=== PATIENT | male | born 1945 | race Caucasian/White ===

== ENCOUNTER → 2017-06-26 | Outpatient (CLI) | payer OTHER ==
--- NOTE | 2017-06-26 16:23 | PCVCIMAG ---
APPROVED REPORT Exam: Stress Echocardiogram Indication: Dyspnea , Chest pain Patient Location: Echo lab Stress Nurse: Sandi Cabrera RN Status: routine HR: 66 bpm Rhythm: NSR w/ lateral T wave inversion Medical History Medical History: COPD Cardiac Risk Factors: HTN Procedure The patient underwent an Exercise Stress Test using the Wayne Protocol. Blood pressure, heart rate, and EKG were monitored. An Echocardiogram was performed by public health sanitarian technician in four stages in quad fashion. At peak stress, four selected images were obtained and placed side by side with resting images for comparison. Stress Test Details Stress Test: Exercise stress testing was performed using a Wayne protocol. HR Resting HR: 66 bpmMax Heart Rate (APMHR): 146 bpm Max HR Achieved: 127 bpmTarget HR (85% APMHR): 124 bpm % of APMHR: 86 Recovery HR: 77 bpm HR response to stress: Normal HR response to stress BP Resting BP: 142/78 mmHg Max BP: 220/110 mmHg Recovery BP: 176/90 mmHg ECG Resting ECG: Sinus Rhythm with T wave inversion laterally Stress ECG: Sinus Rhythm Arrhythmia: Short run of SVT at rest, pre-exercise, that resolved quickly Recovery ECG: Sinus Rhythm Recovery ST Deviation: 0 mm Recovery Arrhythmia: None Clinical Reason for Termination: Dyspnea, Maximal effort Stress Symptoms: Dyspnea Exercise duration: 6 min 26 sec Highest Stage Achieved: Stage 3: 3.4 mph at 14% grade. Exercise capacity: 8.4 METs Overall Exercise Capacity for Age: Average Angina Score: None Stress ECG Conclusion Clinical: Non-ischemic ECG: Non-ischemic Pre-Stress Echo The resting Echocardiogram showed normal left ventricular contractility with an estimated Ejection Fraction of about 50-55%. Normal wall motion in all segments on baseline images. Post-Stress Echo The stress Echocardiogram showed abnormal left ventricular contractility with an estimated Ejection Fraction of about 60%. The stress Echocardiogram demonstrated wall motion abnormality in the mid to distal septum and apical mcdermott. Conclusion Clinical Response: Equivocal Exercise Capacity: Average Stress ECG Response: Non-ischemic Stress Echo Images: Ischemic Recommend coronary angiography Other Information Study Quality: Adequate Technically limited study due to body habitus, lung disease. <Conclusion> Recommend coronary angiography
== END | disposition home or self-care (01) ==
LOC: PCVCIMAG 14:52
PROVIDERS: ATTEND Internal Medicine
DX: I10 Essential (primary) hypertension (principal); J98.4 Other disorders of lung; J44.9 Chronic obstructive pulmonary disease, unspecified; K21.9 Gastro-esophageal reflux disease without esophagitis; Z87.891 Personal history of nicotine dependence; Z88.0 Allergy status to penicillin
CPT/HCPCS: 93325; 93351

== ENCOUNTER → 2017-07-11 | Outpatient (CLI) | payer OTHER | END | disposition home or self-care (01) | LOC: PCVCCLINIC 12:00 | PROVIDERS: ATTEND Internal Medicine | DX: I25.10 Atherosclerotic heart disease of native coronary artery without angina pectoris (principal); I10 Essential (primary) hypertension; E78.5 Hyperlipidemia, unspecified; R73.02 Impaired glucose tolerance (oral); J44.9 Chronic obstructive pulmonary disease, unspecified; Z85.46 Personal history of malignant neoplasm of prostate; Z87.891 Personal history of nicotine dependence; Z88.0 Allergy status to penicillin; Z88.8 Allergy status to other drugs, medicaments and biological substances | CPT/HCPCS: G0463 ==

== ENCOUNTER → 2017-07-17 | Outpatient (CLI) | payer OTHER ==
--- NOTE | 2017-07-17 08:55 | PCVCIMAG ---
APPROVED REPORT Indications Bruit Risk Factors Hypertension: Hyperlipidemia Doppler Spectral Velocity Analysis PSV / EDVPSV / EDV ECA (R) 115 / 16 cm/sECA (L) 98 / 18 cm/s dICA (R) 61 / 22 cm/sdICA (L) 49 / 16 cm/s Stephany (R) 85 / 26 cm/smICA (L) 94 / 43 cm/s pICA (R) 82 / 22 cm/spICA (L) 100 / 39 cm/s Bulb (R) 55 / 13 cm/sBulb (L) 82 / 30 cm/s dCCA (R) 76 / 13 cm/sdCCA (L) 95 / 29 cm/s mCCA (R) 91 / 23 cm/smCCA (L) 102 / 29 cm/s Vert (R) 43 / 13 cm/sVert (L) 71 / 21 cm/s ICA/CCA 1.12ICA/CCA 1.05 Basic Measurements Blood Pressure: Pulses: Right Left RightLeft Brachial(Sitting) 124/77qzBt378/80mmHgTemporal Real Time B-Mode Imaging Vert. (R)AntegradeVert. (L)Antegrade Findings The right carotid bulb has moderate calcified plaque. The right proximal internal carotid artery shows <40% stenosis. The right common carotid artery shows no significant stenosis. The right external carotid artery shows no significant stenosis. The left carotid bulb has moderate calcified plaque. The left proximal internal carotid artery shows <40% stenosis. The left common carotid artery shows no significant stenosis. The left external carotid artery shows no significant stenosis. Conclusion 1. Right internal carotid artery stenosis (<40%) 2. Left internal carotid artery stenosis (<40%) 3. Antegrade vertebral flow
--- NOTE | 2017-07-17 10:25 | PCVCIMAG ---
EXAM: AORTOILIAC DUPLEX INDICATION: Palpable abdominal fullness. FINDINGS: AORTA: Suprarenal aorta measures maximum diameter of 2.9 cm. There is not a fusiform infrarenal aortic aneurysm. The infrarenal aorta measures maximum diameter of 2.7 cm. No aortic stenosis. RIGHT COMMON ILIAC ARTERY: Maximum diameter is 1.7 cm. No significant stenosis. RIGHT EXTERNAL ILIAC ARTERY: No significant stenosis. LEFT COMMON ILIAC ARTERY: Maximum diameter is 1.7 cm. No significant stenosis. LEFT EXTERNAL ILIAC ARTERY: No significant stenosis. IMPRESSION: No abdominal aortic aneurysm. No aortoiliac stenosis seen. 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 LOC:[id number]
== END | disposition home or self-care (01) ==
LOC: PCVCIMAG 07:55
PROVIDERS: ATTEND Internal Medicine
DX: I65.23 Occlusion and stenosis of bilateral carotid arteries (principal); I10 Essential (primary) hypertension; E78.5 Hyperlipidemia, unspecified; I77.811 Abdominal aortic ectasia; Z87.891 Personal history of nicotine dependence
CPT/HCPCS: 93880; 93978